=== PATIENT | female | born 1960 | race Caucasian/White ===

== ENCOUNTER 2016-08-25 20:00 | Observation (INO) | payer SELFPAY ==
[2016-08-25] VITALS (9 sets, daily range): BP systolic 121–195; BP diastolic 78–131; PULSE 60–75; RESP 18–20; TEMP 98.4; O2SAT 96–100
[~2016-08-25] VITALS: Ht 167.6 cm; Wt 78.2 kg
[2016-08-25] MEDS ORDERED: SODIUM CHLOR 0.9% 1000 ML INJ 1,000 ML IV SCH (20:25)
[2016-08-25] MEDS ORDERED: LABETALOL HCL 100 MG/20 ML VIAL IV PUSH PRN (20:30)
[2016-08-25] MEDS ORDERED: ONDANSETRON HCL 4 MG/2 ML VIAL IVP ONE (20:30)
[2016-08-25] MEDS ORDERED: SODIUM CHLORIDE 0.9% FLUSH 10 ML FLUSH IV FLUSH PRN ×2 (20:30→23:00)
--- NOTE | 2016-08-25 20:30 | PD ---
HPI Chief Complaint: Dizziness Time Seen by Provider: 20:17 Travel History International Travel<30 days: Yes Contact w/Intl Traveler<30days: Yes Name of Country Traveled to: [place] Traveled to known affect area: No History of Present Illness HPI This is a 55-year-old female visiting from [place] with a history of hypertension who presents to the emergency department with one-day of lightheadedness and dizziness. History is obtained mostly from her daughter. I offered the family a policy loan calculator but they declined. Patient has been feeling lightheaded all day. She went shopping but then the symptoms got worse. She says she feels like she is going to pass out. She also feels like her stomach doesn't feel right. She's vomited multiple times. Her symptoms have been constant and worsening throughout the day. She denies any headache, chest pain or shortness of breath. She took her amlodipine and her candesartan HCTZ this morning. When she checked her blood pressure this afternoon it was 210/110. She has a son-in-law who is an emergency medicine physician and he recommended that she take some meclizine. She did but that didn't make her feel any better. She's never had symptoms like this before. PFSH Past Medical History Narrative Medical hypertension ?: Not Social History Narrative Social History visiting here from [place], been here for 2 months Tobacco Use: Yes Allergies-Medications (Allergen,Severity, Reaction): Coded Allergies: No Known Allergies (Unverified , 08/25/16) Reported Meds & Prescriptions Reported Meds & Active Scripts Active Reported [[id number]] 1 Tab PO DAILY Norvasc (Amlodipine Besylate) 5 Mg Tab 5 Mg PO HS Review of Systems Except as stated in HPI: all other systems reviewed are Neg Physical Exam Narrative GENERAL: Unwell-appearing, actively vomiting SKIN: Cool and clammy HEAD: Atraumatic. Normocephalic. EYES: Pupils equal and round. No injection or drainage. ENT: Moist mucous membranes NECK: Trachea midline. CARDIOVASCULAR: Regular rate and rhythm. No murmur appreciated. RESPIRATORY: Clear to auscultation. Breath sounds equal bilaterally. GASTROINTESTINAL: Abdomen soft, non-tender, nondistended. MUSCULOSKELETAL: No obvious deformities. NEUROLOGICAL: Awake and alert. No obvious cranial nerve deficits. Moving all extremities. PSYCHIATRIC: Appropriate mood and affect; insight and judgment normal. Data Data Last Documented VS Vital Signs Date Time Temp Pulse Resp B/P Pulse Ox O2 Delivery O2 Flow Rate FiO2 08/25/16 22:45 61 18 166/81 100 Room Air 08/25/16 20:04 98.4 Orders Complete Blood Count With Diff (08/25/16 20:25) Comprehensive Metabolic Panel (08/25/16 20:25) Lipase (08/25/16 20:25) Lactic Acid (08/25/16 20:25) Urinalysis - C+S If Indicated (08/25/16 20:25) Iv Access Insert/Monitor (08/25/16 20:25) Ecg Monitoring (08/25/16 20:25) Oximetry (08/25/16 20:25) Ondansetron Inj (Zofran Inj) (08/25/16 20:30) Sodium Chlor 0.9% 1000 Ml Inj (Ns 1000 M (08/25/16 20:25) Sodium Chloride 0.9% Flush (Ns Flush) (08/25/16 20:30) Ct Brain W/O Iv Contrast(Rout) (08/25/16 ) Troponin I (08/25/16 20:25) Electrocardiogram (08/25/16 ) Labetalol Inj (Trandate Inj) (08/25/16 20:30) Enalaprilat Inj (Vasotec Inj) (08/25/16 21:30) Ondansetron Inj (Zofran Inj) (08/25/16 21:45) Sodium Chlor 0.9% 1000 Ml Inj (Ns 1000 M (08/25/16 22:00) Potassium Chloride Eff (K-Lyte Cl Eff) (08/25/16 23:00) Admit Order (Ed Use Only) (08/25/16 22:58) Ceftriaxone Inj (Rocephin Inj) (08/25/16 23:00) Labs Laboratory Tests Test 08/25/16 08/25/16 08/25/16 20:35 20:55 21:40 White Blood Count 8.8 TH/MM3 Red Blood Count 5.47 MIL/MM3 Hemoglobin 15.0 GM/DL Hematocrit 46.2 % Mean Corpuscular Volume 84.4 FL Mean Corpuscular Hemoglobin 27.4 PG Mean Corpuscular Hemoglobin 32.4 % Concent Red Cell Distribution Width 12.6 % Platelet Count 288 TH/MM3 Mean Platelet Volume 9.2 FL Neutrophils (%) (Auto) 68.3 % Lymphocytes (%) (Auto) 25.4 % Monocytes (%) (Auto) 5.0 % Eosinophils (%) (Auto) 0.9 % Basophils (%) (Auto) 0.4 % Neutrophils # (Auto) 6.1 TH/MM3 Lymphocytes # (Auto) 2.2 TH/MM3 Monocytes # (Auto) 0.4 TH/MM3 Eosinophils # (Auto) 0.1 TH/MM3 Basophils # (Auto) 0.0 TH/MM3 CBC Comment DIFF FINAL Differential Comment Sodium Level 137 MEQ/L Potassium Level 3.0 MEQ/L Chloride Level 100 MEQ/L Carbon Dioxide Level 24.2 MEQ/L Anion Gap 13 MEQ/L Blood Urea Nitrogen 12 MG/DL Creatinine 0.84 MG/DL Estimat Glomerular Filtration 71 ML/MIN Rate Random Glucose 125 MG/DL Calcium Level 9.8 MG/DL Total Bilirubin 0.6 MG/DL Aspartate Amino Transf 25 U/L (AST/SGOT) Alanine Aminotransferase 58 U/L (ALT/SGPT) Alkaline Phosphatase 174 U/L Troponin I 0.02 NG/ML Total Protein 8.8 GM/DL Albumin 4.4 GM/DL Lipase 154 U/L Lactic Acid Level 2.9 mmol/L Urine Color YELLOW Urine Turbidity CLEAR Urine pH 7.0 Urine Specific [place] 1.018 Urine Protein 100 mg/dL Urine Glucose (UA) NEG mg/dL Urine Ketones 40 mg/dL Urine Occult Blood NEG Urine Nitrite NEG Urine Bilirubin NEG Urine Leukocyte Esterase NEG Urine WBC 6-8 /hpf Urine WBC Clumps OCC Urine Squamous Epithelial 0-5 /hpf Cells Urine Mucus OCC /lpf Microscopic Urinalysis Comment CULT NOT INDICATED MDM Medical Decision Making Medical Screen Exam Complete: Yes Emergency Medical Condition: Yes Interpretation(s) EKG: Left ventricular hypertrophy with ST depressions in the lateral leads No leukocytosis Mild hypokalemia Lactic acid is 2.9 Troponin is normal Lipase is normal Urinalysis: Some ketones and some white blood cell clumps Last [address] 08/25/16 0000 Signed Impressions: Service Date/Time: Thursday, August 25, 2016 20:34 - CONCLUSION: Normal examination. Kyle Flores MD Differential Diagnosis Hypertensive urgency, hypertensive emergency, acute coronary syndrome, pancreatitis, dehydration, gastroenteritis Narrative Course This is a 55-year-old female who presents to the emergency department with dizziness and lightheadedness that's been going on for 1 day associated with multiple episodes of vomiting and high blood pressure. In the emergency department she had a blood pressure of 185/111 on arrival. She was actively vomiting. She has a completely benign abdomen. CT of the head was negative for intracranial hemorrhage. Labs demonstrate some hypokalemia and a mildly elevated lactic acid which I suspect is in the setting of the patient's vomiting and she has some ketones in her urine as well. She does have some white blood cell clumps in her urine which could suggest urinary tract infection. Patient required multiple doses of antiemetics. She was given IV labetalol and IV Vasotec and her blood pressure improved. I think she requires overnight observation, continued blood pressure management and IV hydration. I suspect all of this is in the setting of hypertensive urgency. Critical Care Narrative Aggregate critical care time was 35 minutes. Time to perform other separately billable procedures was not included in the critical care time. My time did not include minutes spent treating any other patients simultaneously or on activities that did not directly contribute to the patient's treatment. The services I provided to this patient were to treat and/or prevent clinically significant deterioration that could result in: Disability, I provided critical care services requiring my management, as noted below: Chart data review, documentation time, medication orders and management, vital sign assessments/reviewing monitor data, ordering and reviewing lab tests, ordering and interpreting/reviewing x-rays and diagnostic studies, care of the patient and discussion of the patient with the admitting physicians. Patient was reassessed on multiple occasions and required multiple doses of antihypertensives. Physician Communication Physician Communication Discussed with Dr. Sanabria Diagnosis Primary Impression: Hypertensive urgency Admitting Information Admitting Physician Requests: Admit Seda Oh MD Aug 25, 2016 20:29
[2016-08-25 20:58] LABS: AUTOMATED NEUTROPHIL # 6.1 TH/MM3 (1.8-7.7); BASOPHIL % 0.4 % (0.0-2.0); EOSINOPHIL # 0.1 TH/MM3 (0-0.4); EOSINOPHIL % 0.9 % (0.0-4.0); HEMATOCRIT 46.2 % (35.0-46.0); HEMO FLAGS DIFF FINAL; LYMPH % 25.4 % (9.0-44.0); LYMPHOCYTE # 2.2 TH/MM3 (1.0-4.8); MEAN CELL VOLUME 84.4 FL (80.0-100.0); MEAN CORPUSCULAR HEMOGLOBIN 27.4 PG (27.0-34.0); MEAN CORPUSCULAR HGB CONC 32.4 % (32.0-36.0); NEUT % 68.3 % (16.0-70.0); PLATELET COUNT 288 TH/MM3 (150-450); RED BLOOD COUNT 5.47 MIL/MM3 (4.00-5.30); RED CELL DISTRIBUTION WIDTH 12.6 % (11.6-17.2); WHITE BLOOD COUNT 8.8 TH/MM3 (4.0-11.0)
--- NOTE | 2016-08-25 21:01 | RADRPT ---
EXAM DATE/TIME: 08/25/2016 20:34 [facility] COMPARISON: No previous studies available for comparison. INDICATIONS : Dizziness. Hypertension. RADIATION DOSE: 58.21 CTDIvol (mGy) MEDICAL HISTORY : Hypertension. SURGICAL HISTORY : None. ENCOUNTER: Initial ACUITY: 1 day PAIN SCALE: 0/10 LOCATION: Bilateral cranial TECHNIQUE: Multiple contiguous axial images were obtained of the head. Using automated exposure control and adj ustment of the mA and/or kV according to patient size, radiation dose was kept as low as reasonably a chievable to obtain optimal diagnostic quality images. DICOM format image data is available electro nically for review and comparison. FINDINGS: CEREBRUM: The ventricles are normal for age. No evidence of midline shift, mass lesion, hemorrhage or acute in farction. No extra-axial fluid collections are seen. POSTERIOR FOSSA: The cerebellum and brainstem are intact. The 4th ventricle is midline. The cerebellopontine angle i s unremarkable. EXTRACRANIAL: The visualized portion of the orbits is intact. SKULL: The calvaria is intact. No evidence of skull fracture. CONCLUSION: Normal examination. Kyle Flores MD on August 25, 2016 at 20:59 Board Certified Radiologist. This report was verified electronically.
[2016-08-25] MEDS ORDERED: AMLO5 PO (21:06)
[2016-08-25] MEDS ORDERED: [UNRECOGNIZED DRUG - OTHER] PO (21:09)
[2016-08-25 21:27] LABS: CHLORIDE 100 MEQ/L (98-107); SODIUM (NA) 137 MEQ/L (136-145)
[2016-08-25] MEDS ORDERED: ENALAPRILAT 2.5 MG/2 ML VIAL IV PUSH ONE (21:30)
[2016-08-25 21:31] LABS: ANION GAP 13 MEQ/L (5-15); BICARBONATE 24.2 MEQ/L (21.0-32.0); BLOOD UREA NITROGEN 12 MG/DL (7-18)
[2016-08-25 21:34] LABS: ALT (GPT) 58 U/L (10-53); AST (GOT) 25 U/L (15-37); GLOMERULAR FILTRATION RATE 71 ML/MIN (>89)
[2016-08-25 21:35] LABS: TOTAL BILIRUBIN ADULT 0.6 MG/DL (0.2-1.0)
[2016-08-25 21:37] LABS: ALKALINE PHOSPHATASE 174 U/L (45-117)
[2016-08-25] MEDS ORDERED: ONDANSETRON HCL 4 MG/2 ML VIAL IV ONE (21:45)
[2016-08-25 21:53] LABS: BLOOD, URINE NEG (NEG); GLUCOSE,URINE NEG (NEG); KETONE, URINE 40 mg/dL (NEG); NITRITE,URINE NEG (NEG)
[2016-08-25] MEDS ORDERED: SODIUM CHLOR 0.9% 1000 ML INJ 1,000 ML IV ONE (22:00)
[2016-08-25 22:10] LABS: URINE COLOR YELLOW (YELLW/STRAW)
[2016-08-25 22:11] LABS: MUCUS URINE OCC /lpf (OCC)
[2016-08-25 22:12] LABS: SQUAMOUS EPITHELIAL CELL URINE 0-5 /hpf (0-5)
[2016-08-25 22:14] LABS: COMMENT (UR) CULT NOT INDICATED; CULTURE IF INDICATED CULT NOT INDICATED
[2016-08-25] MEDS ORDERED: cefTRIAXone INJ 1,000 MG in SODIUM CHLORIDE 0.9% INJ 100 ML IV ONE (23:00)
[2016-08-25] MEDS ORDERED: NALOXONE HCL 0.4 MG/ML AMP IV PRN (23:00)
[2016-08-25] MEDS ORDERED: POTASSIUM CHLORIDE 25 MEQ EFFERVESCENT TAB PO ONE (23:00)
[2016-08-25] MEDS ORDERED: hydrALAZINE HCL 20 MG/ML VIAL IV PUSH PRN (23:15)
[2016-08-26] VITALS (9 sets, daily range): BP systolic 128–169; BP diastolic 84–98; PULSE 59–69; RESP 17–20; TEMP 96.2–98.5; O2SAT 97–100
[2016-08-26] MEDS ORDERED: PROCHLORPERAZINE INJ 10 MG/2 ML VIAL IV PUSH PRN (01:30)
[2016-08-26] MEDS ORDERED: MECLIZINE HCL 25 MG TAB PO ONE (01:30)
[2016-08-26 06:19] LABS: AUTOMATED NEUTROPHIL # 4.5 TH/MM3 (1.8-7.7); BASOPHIL % 0.2 % (0.0-2.0); EOSINOPHIL # 0.1 TH/MM3 (0-0.4); EOSINOPHIL % 0.7 % (0.0-4.0); HEMATOCRIT 38.8 % (35.0-46.0); HEMO FLAGS DIFF FINAL; LYMPH % 28.6 % (9.0-44.0); LYMPHOCYTE # 2.1 TH/MM3 (1.0-4.8); MEAN CELL VOLUME 84.4 FL (80.0-100.0); MEAN CORPUSCULAR HEMOGLOBIN 28.5 PG (27.0-34.0); MEAN CORPUSCULAR HGB CONC 33.7 % (32.0-36.0); MONO % 8.9 % (0.0-8.0); NEUT % 61.6 % (16.0-70.0); PLATELET COUNT 238 TH/MM3 (150-450); RED CELL DISTRIBUTION WIDTH 12.5 % (11.6-17.2); WHITE BLOOD COUNT 7.3 TH/MM3 (4.0-11.0)
[2016-08-26 07:02] LABS: BICARBONATE 25.5 MEQ/L (21.0-32.0); POTASSIUM 3.7 MEQ/L (3.5-5.1)
[2016-08-26] MEDS: SODIUM CHLORIDE 0.9% FLUSH 10 ML FLUSH IV FLUSH SCH ×2 (08:40→21:07)
[2016-08-26] MEDS ORDERED: [UNRECOGNIZED DRUG - MIXTURE] PO SCH (10:00)
--- NOTE | 2016-08-26 10:06 | HHI.HP ---
[facility] Service [facility] Primary Care Physician No Primary Care Physician Admission Diagnosis hypertensive urgency Diagnoses: (1) Hypertensive urgency Diagnosis: Principal (2) Dizziness Diagnosis: Principal Chief Complaint: Dizziness with nausea vomiting Travel History International Travel<30 Days: No Contact w/Intl Traveler <30 Da: [place] of Country Traveled to: [place] Traveled to Known Affected Are: No History of Present Illness Written by Jarad Swenson, acting as scribe for Dr. Mitchell on 08/26/16 at 10: 44. 55-year-old [place] female with known history of hypertension, hyperlipidemia presented to hospital because of dizziness, nausea and vomiting. Patient does not speak Bengali, translation was done by daughter at bedside. Patient has been visiting from [place] for 1-1/2 months so far. She had been doing well until yesterday when she woke up she had significant dizziness. Patient indicates that she had similar episode probably 2 months ago when she was in [place]. She took her blood pressure was mildly elevated she took extra blood pressure medication and the dizziness went away. However, she checked her blood pressure this time and it was elevated also. She did take extra medication but the dizziness did not go away. She states that the dizziness is worse whenever she lays down, she states that it got significant where she started having intractable nausea and vomiting. She describes it as the room is spinning whenever she lies down. It is better whenever she sits up with her head downward. Patient's recent travel was 1-1/2 months ago. Denies any recent activity that can cause inner ear abnormalities such as scuba diving, parachuting, mountain driving. Patient states that she is feeling little better today. She is able to sit in inclined position. Dizziness not as bad whenever she lies down. She has not had any nausea and vomiting since being in the hospital. Patient denies any recent illness, right nose, sore throat, cough , congestion, headache Review of Systems Constitutional: COMPLAINS OF: Dizziness, DENIES: Diaphoretic episodes, Fatigue , Fever, Weight gain, Weight loss, Chills, Change in appetite, Night Sweats Eyes: DENIES: Blurred vision, Diplopia, Eye inflammation, Eye pain, Vision loss , Double Vision Ears, nose, mouth, throat: DENIES: Hearing loss, Nasal discharge, Throat pain, Ear Pain, Running Nose, Sinus Pain Respiratory: DENIES: Apneas, Cough, Snoring, Wheezing, Hemoptysis, Sputum production, Shortness of breath Cardiovascular: DENIES: Chest pain, Palpitations, Syncope, Dyspnea on Exertion , PND, Lower Extremity Edema, Orthopnea, Claudication Gastrointestinal: COMPLAINS OF: Nausea, Vomiting, DENIES: Abdominal pain, Black stools, Bloody stools, Constipation, Diarrhea, Difficulty Swallowing, Anorexia Neurologic: DENIES: Abnormal gait, Headache, Localized weakness, Paresthesias, Seizures, Speech Problems, Tremor, Poor Balance Past Family Social History Past Medical History Hypertension Hyperlipidemia Past Surgical History Patient denies any previous surgeries Reported Medications Reported Meds & Active Scripts Active Reported [/,5] 1 Tab PO DAILY Norvasc (Amlodipine Besylate) 5 Mg Tab 5 Mg PO HS Allergies: Coded Allergies: No Known Allergies (Unverified , 08/25/16) Family History Significant for heart disease in father. Heart attack at age 74 Social History Patient denies any tobacco, alcohol or illicit drugs Physical Exam Vital Signs Vital Signs Date Time Temp Pulse Resp B/P Pulse Ox O2 Delivery O2 Flow Rate FiO2 08/26/16 08:30 157/86 08/26/16 08:00 96.2 59 17 165/91 100 08/26/16 05:26 98.5 69 20 128/84 97 Automatic Cuff Manual Cuff/Auscultation 08/26/16 01:26 63 08/26/16 00:58 69 18 169/93 96 08/26/16 00:45 96.7 63 20 148/98 100 Automatic Cuff 08/25/16 23:51 75 18 165/91 99 Nasal Cannula 08/25/16 23:33 68 18 121/81 100 Nasal Cannula 08/25/16 22:45 61 18 166/81 100 Room Air 08/25/16 22:37 Room Air 08/25/16 22:15 60 18 172/96 96 08/25/16 21:56 62 18 161/78 96 Room Air 08/25/16 21:17 62 18 193/95 100 Room Air 08/25/16 21:04 64 20 170/80 100 Room Air 08/25/16 21:00 65 20 195/131 100 Room Air 08/25/16 20:30 Room Air 08/25/16 20:04 98.4 68 20 185/111 100 Physical Exam GENERAL: Well-developed, well-nourished, in no acute distress. alert and orientated HEENT: Head is normocephalic without any lesions or masses noted. Facial features are symmetric. Eyes: Pupils equal round reactive to light. Extraocular muscles are intact. Conjunctivae were clear. Oropharyngeal: Pharynx without any erythema edema. Tongue is midline without deviation. Buccal mucosa is moist without any masses or lesions NECK: Supple without any masses. Trachea midline no deviation. No JVD, no bruits are appreciated CARDIAC: Regular rhythm, regular rate. S1/S2 are heard. No murmurs gallops or rubs. LUNGS: Clear to auscultation bilaterally. No wheeze, rhonchi or rales. No use of accessory muscles on inspiration or expiration. ABDOMEN: Soft, nontender. Nondistended. Bowel sounds heard in all 4 quadrants. No organomegaly or masses. Negative rebound, negative guarding EXTREMITIES: No edema, pulses are equal bilaterally. No cyanosis or clubbing NEUROLOGY: Mood and affect appear appropriate. Cranial nerves II through XII grossly intact. Muscle strength 5/5 in upper and lower extremities bilaterally. Deep tendon reflexes are 2+ in upper and lower extremities bilaterally. Dizziness worsens with head rotation to the right. Patient had close eyes when looking up because of dizziness. Laboratory Laboratory Tests Test 08/25/16 08/25/16 08/25/16 08/26/16 20:35 20:55 21:40 02:45 White Blood Count 8.8 Red Blood Count 5.47 Hemoglobin 15.0 Hematocrit 46.2 Mean Corpuscular Volume 84.4 Mean Corpuscular Hemoglobin 27.4 Mean Corpuscular Hemoglobin 32.4 Concent Red Cell Distribution Width 12.6 Platelet Count 288 Mean Platelet Volume 9.2 Neutrophils (%) (Auto) 68.3 Lymphocytes (%) (Auto) 25.4 Monocytes (%) (Auto) 5.0 Eosinophils (%) (Auto) 0.9 Basophils (%) (Auto) 0.4 Neutrophils # (Auto) 6.1 Lymphocytes # (Auto) 2.2 Monocytes # (Auto) 0.4 Eosinophils # (Auto) 0.1 Basophils # (Auto) 0.0 CBC Comment DIFF FINAL Differential Comment Sodium Level 137 Potassium Level 3.0 Chloride Level 100 Carbon Dioxide Level 24.2 Anion Gap 13 Blood Urea Nitrogen 12 Creatinine 0.84 Estimat Glomerular Filtration 71 Rate Random Glucose 125 Calcium Level 9.8 Total Bilirubin 0.6 Aspartate Amino Transf 25 (AST/SGOT) Alanine Aminotransferase 58 (ALT/SGPT) Alkaline Phosphatase 174 Troponin I 0.02 0.04 Total Protein 8.8 Albumin 4.4 Lipase 154 Lactic Acid Level 2.9 Urine Color YELLOW Urine Turbidity CLEAR Urine pH 7.0 Urine Specific [place] 1.018 Urine Protein 100 Urine Glucose (UA) NEG Urine Ketones 40 Urine Occult Blood NEG Urine Nitrite NEG Urine Bilirubin NEG Urine Leukocyte Esterase NEG Urine WBC 6-8 Urine WBC Clumps OCC Urine Squamous Epithelial 0-5 Cells Urine Mucus OCC Microscopic Urinalysis Comment CULT NOT INDICATED Total Creatine Kinase 60 Test 08/26/16 08/26/16 05:50 08:15 White Blood Count 7.3 Red Blood Count 4.60 Hemoglobin 13.1 Hematocrit 38.8 Mean Corpuscular Volume 84.4 Mean Corpuscular Hemoglobin 28.5 Mean Corpuscular Hemoglobin 33.7 Concent Red Cell Distribution Width 12.5 Platelet Count 238 Mean Platelet Volume 8.9 Neutrophils (%) (Auto) 61.6 Lymphocytes (%) (Auto) 28.6 Monocytes (%) (Auto) 8.9 Eosinophils (%) (Auto) 0.7 Basophils (%) (Auto) 0.2 Neutrophils # (Auto) 4.5 Lymphocytes # (Auto) 2.1 Monocytes # (Auto) 0.6 Eosinophils # (Auto) 0.1 Basophils # (Auto) 0.0 CBC Comment DIFF FINAL Differential Comment Sodium Level 144 Potassium Level 3.7 Chloride Level 109 Carbon Dioxide Level 25.5 Anion Gap 10 Blood Urea Nitrogen 11 Creatinine 0.70 Estimat Glomerular Filtration 87 Rate Random Glucose 108 Calcium Level 8.7 Total Creatine Kinase 57 Troponin I 0.04 Result Diagram: 08/26/16 0550 08/26/16 0550 Imaging Last Impressions Head CT 08/25/16 0000 Signed Impressions: Service Date/Time: Thursday, August 25, 2016 20:34 - CONCLUSION: Normal examination. Kyle Flores MD Assessment and Plan Assessment and Plan Hypertension urgency, improved Status post Vasotec, labetalol Resume patient's home medications Apresoline, labetalol as needed Dizziness, likely BPPV Could be secondary to vertigo versus hypertensive urgency Improved with use of meclizine, Anderson maneuver has been done by the PT Meclizine every 8 hours Obtain PT evaluation DVT prevention Sequential compression devices This note was transcribed by scribe [Jewel Swenson]. I, Dr. Lydia Mitchell personally performed the history, physical exam, and medical decision making; and confirmed the accuracy of the information in the transcribed note. Authenticated by Dr. Lydia Mitchell on 08/26/16 at 17:25. Jarad Swenson Aug 26, 2016 10:06 Lydia Mitchell MD Aug 26, 2016 17:25
[2016-08-26] MEDS: MECLIZINE HCL 25 MG TAB PO SCH ×3 (10:46→21:07)
[2016-08-26] MEDS: LOSARTAN 50 MG TAB PO SCH (10:47)
[2016-08-26] MEDS: HYDROCHLOROTHIAZIDE 12.5 MG CAP PO SCH (10:47)
[2016-08-26] MEDS: amLODIPine BESYLATE 5 MG TAB PO SCH ×2 (10:47→21:07)
--- NOTE | 2016-08-26 18:07 | EKG ---
Date Performed: 08/26/2016 Time Performed: 08:18:25 PTAGE: 55 years EKG: SINUS BRADYCARDIA PROLONGED QT INTERVAL MINIMAL ST DEPRESSIONS ABNORMAL ECG PREVIOUS TRACING : 08/26/2016 02.35 Compared to prior tracing no significant change DOCTOR: Syed Quiroz Interpretating Date/Time 08/26/2016 18:06:25
--- NOTE | 2016-08-26 18:35 | EKG ---
Date Performed: 08/26/2016 Time Performed: 02:35:01 PTAGE: 55 years EKG: SINUS BRADYCARDIA MODERATE ST DEPRESSION PROLONGED QT INTERVAL ABNORMAL ECG PREVIOUS TRACING : 08/25/2016 20.38 Compared to the previous tracing, QTc appears to be longer DOCTOR: Syed Quiroz Interpretating Date/Time 08/26/2016 18:34:33
--- NOTE | 2016-08-26 18:48 | EKG ---
Date Performed: 08/25/2016 Time Performed: 20:38:05 PTAGE: 55 years EKG: Sinus rhythm LEFT VENTRICULAR HYPERTROPHY AND ST-T CHANGE ABNORMAL ECG NO PREVIOUS TRACING DOCTOR: Syed Quiroz Interpretating Date/Time 08/26/2016 18:47:53
[2016-08-26] MEDS ORDERED: cefTRIAXone INJ 1,000 MG in SODIUM CHLORIDE 0.9% INJ 100 ML IV SCH (23:00)
[2016-08-27] VITALS: BP 132/83; PULSE 68; RESP 20; TEMP 97.1; O2SAT 95
[2016-08-27 04:00] VITALS: BP 139/83; PULSE 64; RESP 20; TEMP 97.9; O2SAT 97
[2016-08-27] MEDS: MECLIZINE HCL 25 MG TAB PO SCH (05:41)
[2016-08-27 08:00] VITALS: BP 156/77; PULSE 58; PULSE 77; RESP 18; TEMP 97.2; O2SAT 97
--- NOTE | 2016-08-27 09:26 | HHI.PR ---
Subjective Remarks sitting on the chair comfortably with no distress. vertigo has improved. no chest pain, sob,nausea or vomiting. Objective Vitals Vital Signs Date Time Temp Pulse Resp B/P Pulse Ox O2 Delivery O2 Flow Rate FiO2 08/27/16 08:00 97.2 58 18 156/77 97 08/27/16 04:00 97.9 64 20 139/83 97 08/27/16 00:00 97.1 68 20 132/83 95 08/26/16 20:00 65 08/26/16 20:00 98.2 67 20 139/89 97 08/26/16 16:00 97.2 63 18 140/84 99 08/26/16 12:00 98.0 61 18 165/89 99 I/O 08/26/16 08/26/16 08/26/16 08/27/16 08/27/16 08/27/16 06:59 14:59 22:59 06:59 14:59 22:59 Intake Total 1220 ml 590 ml 240 ml Balance 1220 ml 590 ml 240 ml Intake Oral 120 ml 590 ml 240 ml IV Total 1000 ml Other 100 ml # Voids 4 5 1 # Bowel Movements 0 1 0 Result Diagram: 08/26/16 0550 08/26/16 0550 Imaging Last Impressions Head CT 08/25/16 0000 Signed Impressions: Service Date/Time: Thursday, August 25, 2016 20:34 - CONCLUSION: Normal examination. Kyle Flores MD Objective Remarks GENERAL: This is a well-nourished, well-developed patient, in no apparent distress. CARDIOVASCULAR: Regular rate and regular rhythm without murmurs, gallops, or rubs. RESPIRATORY: Clear to auscultation. Breath sounds equal bilaterally. No wheezes , rales, or rhonchi. GASTROINTESTINAL: Abdomen soft, non-tender, nondistended. Normal, active bowel sounds MUSCULOSKELETAL: Extremities without clubbing, cyanosis, or edema. NEURO: Alert & Oriented x4 to person, place, time, situation. Moves all ext x4 Medications and IVs Current Medications Ondansetron HCl 4 mg 4 mg ONCE ONCE IVP Last administered on 08/25/16t 20:57; Start 08/25/16 at 20:30; Stop 08/25/16 at 20:31; Status DC Sodium Chloride (NS 1000 ml Inj) 1,000 ml @ 1,000 mls/hr Q1H IV Last administered on 08/25/16 20:52; Start 08/25/16 at 20:25; Stop 08/25/16 at 21:24 ; Status DC Sodium Chloride (NS Flush) 2 ml UNSCH PRN IV FLUSH FLUSH AFTER USING IV ACCESS Last administered on 08/25/16 20:59; Start 08/25/16 at 20:30; Stop 08/25/16 at 23:05; Status DC Labetalol HCl (Trandate Inj) 10 mg Q20M PRN IV PUSH SBP>180, DBP>100, HR>65 Last administered on 08/25/16 20:58; Start 08/25/16 at 20:30 Enalaprilat (Vasotec Inj) 2.5 mg ONCE ONCE IV PUSH Last administered on 22:24; Start 08/25/16 at 21:30; Stop 08/25/16 at 21:31; Status DC Ondansetron HCl 4 mg 4 mg ONCE ONCE IV Last administered on 08/25/16 21:47; Start 08/25/16 at 21:45; Stop 08/25/16 at 21:46; Status DC Sodium Chloride (NS 1000 ml Inj) 1,000 ml @ 999 mls/hr BOLUS ONCE IV Last administered on 08/25/16 22:22; Start 08/25/16 at 22:00; Stop 08/25/16 at 23:00 ; Status DC Potassium Bicarb/ Potassium Chloride 50 meq 50 meq ONCE ONCE PO Last administered on 08/25/16 23:24; Start 08/25/16 at 23:00; Stop 08/25/16 at 23:01 ; Status DC Ceftriaxone Sodium/Sodium Chloride (Rocephin Inj/NS Inj) 100 ml @ 200 mls/hr ONCE ONCE IV Last administered on 08/25/16 23:25; Start 08/25/16 at 23:00; Stop 08/25/16 at 23:29; Status DC Sodium Chloride (NS Flush) 2 ml UNSCH PRN IV FLUSH FLUSH AFTER USING IV ACCESS Last administered on 08/26/16 22:54; Start 08/25/16 at 23:00 Sodium Chloride (NS Flush) 2 ml BID IV FLUSH Last administered on 08/26/16 21: 07; Start 08/26/16 at 09:00 Naloxone HCl 0.4 mg 0.4 mg UNSCH PRN IV SEE LABEL COMMENTS; Start 08/25/16 at 23:00 Ceftriaxone Sodium/Sodium Chloride (Rocephin Inj/NS Inj) 100 ml @ 200 mls/hr Q24H IV Last administered on 08/26/16 22:54; Start 08/26/16 at 23:00 Hydralazine HCl (Apresoline Inj) 10 mg Q30M PRN IV PUSH bp>160/90 Last administered on 08/26/16 13:26; Start 08/25/16 at 23:15 Prochlorperazine Edisylate (Compazine Inj) 5 mg Q6H PRN IV PUSH nausea Last administered on 08/26/16 01:44; Start 08/26/16 at 01:30 Meclizine HCl (Antivert) 25 mg ONCE ONCE PO Last administered on 08/26/16 01: 44; Start 08/26/16 at 01:30; Stop 08/26/16 at 01:34; Status DC Non-Formulary Medication 1 tab DAILY PO ; Start 08/26/16 at 10:00; Status UNV Amlodipine Besylate (Norvasc) 5 mg BID PO Last administered on 08/26/16 21:07 ; Start 08/26/16 at 10:00 Meclizine HCl (Antivert) 25 mg Q8HR PO Last administered on 08/27/16 05:41; Start 08/26/16 at 10:00 Losartan Potassium (Cozaar) 50 mg DAILY PO Last administered on 08/26/16 10:47 ; Start 08/26/16 at 11:00 Hydrochlorothiazide (Microzide) 12.5 mg DAILY PO Last administered on 10:47; Start 08/26/16 at 11:00 A/P Assessment and Plan A/P Hypertension urgency, improved Status post Vasotec, labetalol Resumed patient's home medications Apresoline, labetalol as needed Dizziness, likely BPPV- improved Could be secondary to vertigo versus hypertensive urgency Improved with use of meclizine, Anderson maneuver has been done by the PT Meclizine every 8 hours DVT prevention Sequential compression devices Discharge Planning dc home today with f/u; pcp. see med list. d/w the patient and her daughter at the bedside. d/w the PT. Freedom Alba MD Aug 27, 2016 09:26
[2016-08-27] MEDS ORDERED: COZA50TA PO (09:30)
[2016-08-27] MEDS ORDERED: HYDR12.57 PO (09:30)
[2016-08-27] MEDS ORDERED: MECL1TAB42 PO (09:30)
[2016-08-27] MEDS ORDERED: AMLO5 PO (09:30)
--- NOTE | 2016-08-27 09:32 | HHI.DS ---
Discharge Summary Admission Date Aug 25, 2016 at 23:00 Discharge Date: Aug 27, 2016 Admitting Diagnosis hypertensive urgency (1) Hypertensive urgency ICD Code: I16.0 Diagnosis: Principal (2) Dizziness ICD Code: R42 Diagnosis: Principal Procedures none Brief History - From Admission Written by Jarad Swenson, acting as scribe for Dr. Mitchell on 08/26/16 at 10: 44. 55-year-old Yi female with known history of hypertension, hyperlipidemia presented to hospital because of dizziness, nausea and vomiting. Patient does not speak [place]ian, translation was done by daughter at bedside. Patient has been visiting from [place] for 1-1/2 months so far. She had been doing well until yesterday when she woke up she had significant dizziness. Patient indicates that she had similar episode probably 2 months ago when she was in [place]. She took her blood pressure was mildly elevated she took extra blood pressure medication and the dizziness went away. However, she checked her blood pressure this time and it was elevated also. She did take extra medication but the dizziness did not go away. She states that the dizziness is worse whenever she lays down, she states that it got significant where she started having intractable nausea and vomiting. She describes it as the room is spinning whenever she lies down. It is better whenever she sits up with her head downward. Patient's recent travel was 1-1/2 months ago. Denies any recent activity that can cause inner ear abnormalities such as scuba diving, parachuting, mountain driving. Patient states that she is feeling little better today. She is able to sit in inclined position. Dizziness not as bad whenever she lies down. She has not had any nausea and vomiting since being in the hospital. Patient denies any recent illness, right nose, sore throat, cough , congestion, headache CBC/BMP: 08/26/16 0550 08/26/16 0550 Significant Findings Laboratory Tests Test 08/25/16 08/25/16 08/25/16 08/26/16 20:35 20:55 21:40 05:50 Red Blood Count 5.47 MIL/MM3 (4.00-5.30) Hematocrit 46.2 % (35.0-46.0) Potassium Level 3.0 MEQ/L (3.5-5.1) Estimat Glomerular Filtration 71 ML/MIN (>89) 87 ML/MIN (>89) Rate Random Glucose 125 MG/DL 108 MG/DL (74-106) (74-106) Alanine Aminotransferase 58 U/L (10-53) (ALT/SGPT) Alkaline Phosphatase 174 U/L (45-117) Total Protein 8.8 GM/DL (6.4-8.2) Lactic Acid Level 2.9 mmol/L (0.4-2.0) Urine Protein 100 mg/dL (NEG-TRACE) Urine Ketones 40 mg/dL (NEG) Urine WBC 6-8 /hpf (0-5) Urine WBC Clumps OCC (NONE) Monocytes (%) (Auto) 8.9 % (0.0-8.0) Chloride Level 109 MEQ/L (98-107) Imaging Last Impressions Head CT 08/25/16 0000 Signed Impressions: Service Date/Time: Thursday, August 25, 2016 20:34 - CONCLUSION: Normal examination. Kyle Flores MD PE at Discharge GENERAL: This is a well-nourished, well-developed patient, in no apparent distress. CARDIOVASCULAR: Regular rate and regular rhythm without murmurs, gallops, or rubs. RESPIRATORY: Clear to auscultation. Breath sounds equal bilaterally. No wheezes , rales, or rhonchi. GASTROINTESTINAL: Abdomen soft, non-tender, nondistended. Normal, active bowel sounds MUSCULOSKELETAL: Extremities without clubbing, cyanosis, or edema. NEURO: Alert & Oriented x4 to person, place, time, situation. Moves all ext x4 Hospital Course Hypertension urgency, improved Status post Vasotec, labetalol Resumed patient's home medications Apresoline, labetalol as needed Dizziness, likely BPPV- improved Could be secondary to vertigo versus hypertensive urgency Improved with use of meclizine, Anderson maneuver has been done by the PT Meclizine every 8 hours DVT prevention Sequential compression devices Pt Condition on Discharge: Fair Discharge Disposition: Discharge Home Discharge Time: <= 30 minutes Discharge Instructions DIET: Follow Instructions for: Heart Healthy Diet Activities you can perform: Regular-No Restrictions Follow up Referrals: PCP Follow-up New Medications: Amlodipine (Norvasc) 5 Mg Tab 5 MG PO BID hypertension Days 30 Ref 0 TAB Hydrochlorothiazide (Hydrochlorothiazide) 12.5 Mg Cap 12.5 MG PO DAILY hypertension Days 30 Ref 0 CAP Losartan (Cozaar) 50 Mg Tab 50 MG PO DAILY hypertension Days 30 Ref 0 TAB Meclizine HCl (Meclizine 25) 25 Mg Tab 25 MG PO Q8HR PRN vertigo #20 Ref 0 TAB Discontinued Medications: Amlodipine (Norvasc) 5 Mg Tab 5 MG PO HS Blood Pressure Management #30 Ref 0 TAB ([[id number],5]) 1 TAB PO DAILY Freedom Alba MD Aug 27, 2016 09:32
--- NOTE | 2016-08-27 09:32 | HHI.DCPOC ---
Discharge Care Plan Diagnosis: (1) Hypertensive urgency (2) Dizziness Additional Problems vertigo Goals to Promote Your Health * To prevent worsening of your condition and complications * To maintain your health at the optimal level Directions to Meet Your Goals Take your medications as prescribed Follow your dietary instruction Follow activity as directed Keep your appointments as scheduled Take your immunizations and boosters as scheduled If your symptoms worsen call your PCP, if no PCP go to Urgent Care Center or Emergency Room Smoking is Dangerous to Your Health. Avoid second hand smoke Call the 24-hour hour crisis hotline for domestic abuse at Freedom Alba MD Aug 27, 2016 09:32
[2016-08-27 11:00] VITALS: BP 124/79; PULSE 66
[2016-08-27] MEDS: LOSARTAN 50 MG TAB PO SCH (11:15)
[2016-08-27] MEDS: amLODIPine BESYLATE 5 MG TAB PO SCH (11:15)
[2016-08-27] MEDS: HYDROCHLOROTHIAZIDE 12.5 MG CAP PO SCH (11:15)
[2016-08-27] MEDS: SODIUM CHLORIDE 0.9% FLUSH 10 ML FLUSH IV FLUSH SCH (11:16)
== END 2016-08-27 12:03 | disposition home or self-care (01) ==
LOC: PHED 20:00 → PHEDA 23:00 → INTOOBSV 23:00 → PH3A 08-26 00:40
PROVIDERS: ADMIT Internal Medicine; ATTEND Internal Medicine
DX: I16.0 Hypertensive urgency (principal); R42 Dizziness and giddiness; R11.2 Nausea with vomiting, unspecified; I45.81 Long QT syndrome; R00.1 Bradycardia, unspecified; R94.31 Abnormal electrocardiogram [ECG] [EKG]; E87.6 Hypokalemia; I11.9 Hypertensive heart disease without heart failure; I51.7 Cardiomegaly; E78.5 Hyperlipidemia, unspecified; F17.200 Nicotine dependence, unspecified, uncomplicated; Z79.899 Other long term (current) drug therapy
CPT/HCPCS: 70450; 80048; 80053; 81001; 82550; 83605; 83690; 84484; 85025; 93005; 96361; 96374; 96375; 96376; 97162; 97530; 99291; G0378; G8987; G8988; J0360; J0696; J0780; J2405; J7030